=== PATIENT | male | born 1985 | race Caucasian/White ===

== ENCOUNTER 2025-01-12 11:42 | Emergency (ER) | payer BC, SELFPAY ==
[2025-01-12 11:52] VITALS: BP 132/89; PULSE 93; RESP 16; TEMP 37; O2SAT 98
--- NOTE | 2025-01-12 12:14 | ED.EXTPRO ---
HPI - Extremity Problem General Chief complaint: Extremity Injury, Upper Stated complaint: Left Arm Swelling Time Seen by Provider: 01/12/25 12:00 Source: patient and RN notes reviewed Mode of arrival: ambulatory Limitations: no limitations History of Present Illness HPI Narrative: 39-year-old male presents [facility] complaining of lump in his left upper arm and bruising. Patient denies any apparent injury. Patient reports feeling a lump to the left medial distal part of his biceps approximately 4-5 days ago. Patient also noticed bruising that started approximately 4 days ago. Patient said the bruising has improved and that illness slight discoloration to his left arm. Patient denies any numbness swelling, deformity, or tingling. Patient denies hearing a pop. Denies any problems moving his left elbow. Related Data Allergies Allergy/AdvReac Type Severity Reaction Status Date / Time No Known Allergies Allergy Verified 01/12/25 12:04 Review of Systems Review of Systems: CONSTITUTIONAL: Denies fever, chills, or sweats. EYES: Denies visual changes, redness, or discharge. ENT: Denies rhinorrhea, congestion, sore throat, or otalgia. CARDIOVASCULAR: Denies chest pain, palpitations, or edema. RESPIRATORY: Denies cough or dyspnea. GASTROINTESTINAL: Denies abdominal pain, nausea, vomiting, or diarrhea. GENITOURINARY: Denies dysuria or hematuria. SKIN: Denies rash, wound, or itching. Positive for left arm mass and bruising. MUSCULOSKELETAL: Denies back pain, joint pain, or myalgia. NEUROLOGIC: Denies headache, numbness, or weakness. PSYCHIATRIC: Denies anxiety or depression. All other systems reviewed are negative, except as documented in HPI. [facility] Surgical History Surgical History H/O wisdom tooth extraction Family History Family History Mother CHF (congestive heart failure) Father Hypertension Social History Social History Smoking status: Never smoker Lack of Transportation: No Lack of Food: Never True Current Housing: I Have Housing Concerned About Future Housing: No Difficulty Paying Gas/Electric Bills: No Difficulty Paying for Meds: No Currently Unemployed: No Education: Trade/Vocational Certificate Difficulty w/ Childcare or Family Care: No Comments At the time of my signature, I reviewed and agree with the nursing past medical, surgical, social, and family history. There is no relevant family history pertinent to the patient complaint. Exam Narrative: GENERAL: This is a well-nourished, well-developed adult, in no apparent distress. They are non ill-appearing, nontoxic appearing. HEAD: normocephalic, atraumatic. EYES: Sclera clear/white. Vision is grossly intact. Conjunctiva normal. Extraocular movement intact. EARS: External ears normal Hearing grossly intact. NOSE: External nose normal THROAT: Mucous membranes moist NECK: Neck supple CARDIOVASCULAR: Regular rate and rhythm RESPIRATORY: Respiratory rate normal, respiratory effort nonlabored, no respiratory distress NEURO: awake, alert, and oriented to person, place and time. There were no obvious focal neurologic abnormalities. EXTREMITIES: Left upper arm: No obvious deformity, injury, swelling,, redness. No Evidence of tendon rupture. Normal flexion extension of biceps. There is a palpable subcutaneous soft tissue mass below the skin lateral distal upper arm. Mass feel soft, mobile, nodular, nontender. No redness, swelling, area of fluctuance, or induration. Right double nontender with through full range of motion. No bony tenderness. There is old bruising that is yellow in color extending from mid lateral upper arm to mid lateral forearm. Capillary refill less than 3 seconds. The left radial Pulse 2 +palpable. Normal sensation. Neurovascular status intact distal to mass. BACK: Nontender without deformity. Course Course Emergency Course: Portions of this record may have been created with voice recognition software Level of Care: Express Care Visit Vital Signs Vital signs: Vital Signs Temperature 98.6 F 01/12/25 11:52 Pulse Rate 93 01/12/25 11:52 Respiratory Rate 16 01/12/25 11:52 Blood Pressure 132/89 01/12/25 11:52 Pulse Oximetry 98 01/12/25 11:52 Oxygen Delivery Room Air 01/12/25 11:52 Temperature 98.6 F 01/12/25 11:52 Pulse Rate 93 01/12/25 11:52 Respiratory Rate 16 01/12/25 11:52 Blood Pressure 132/89 01/12/25 11:52 Pulse Oximetry 98 01/12/25 11:52 Oxygen Delivery Room Air 01/12/25 11:52 Reviewed MDM - Extremity (Nontraumatic) MDM Narrative Medical decision making narrative: Likely soft tissue mass bruising appears to relate lateral to manipulating the skin. Bruise in his old and is almost healed. Patient denies any apparent injury, swelling, or pain, therefore no x-rays indicated. Well score of 0. Advised close follow-up with PCP for further evaluation management. Discussed physical exam findings. Advised supportive measures and signs/symptoms to go to the ER. Pt is appropriate for outpt treatment and f/u. Differential Diagnosis Differential diagnosis: Likely deep venous thrombosis of upper extremity and other (lipoma, cyst) Critical Care Time Critical Care Time Critical Care Time: No Discharge Plan Discharge Clinical Impression: Mass of soft tissue of left upper extremity Patient Disposition: Home Condition: Stable Instructions: Cyst (ED), Soft Tissue Mass (ED) Additional Instructions: Follow-up with your primary care provider in 3-5 days for further evaluation of the mass in your left arm. You may take Tylenol or ibuprofen as needed for pain. If you developed any worsening arm swelling, severe arm pain, fevers, or any other concerns please go to the ER immediately. Patient Language: Citizen Of [place] Prescriptions: No Action lisinopril-hydrochlorothiazide 20-12.5 mg tablet 2 tablet PO DAILY Qty: 180 3RF tadalafil [Cialis] 5 mg tablet 5 mg PO DAILY Qty: 30 5RF Follow-up/Referrals: Byron Vo MD [Primary Care Provider] - Time of Disposition: 12:09
== END 2025-01-12 12:10 | disposition home or self-care (01) ==
PROVIDERS: PCP Family Medicine Adolescent Medicine
DX: R22.32 Localized swelling, mass and lump, left upper limb (principal)
CPT/HCPCS: 99211; G0463

== ENCOUNTER 2025-05-16 11:01 | Emergency (ER) | payer BC, SELFPAY ==
[2025-05-16 11:05] VITALS: BP 150/89; PULSE 90; RESP 20; TEMP 36.6; O2SAT 100
--- NOTE | 2025-05-17 08:21 | ED.SKABFB ---
HPI - Skin/Abscess/Foreign Bdy General Chief complaint: Skin/Abscess/Foreign Body Stated complaint: Rash Time Seen by Provider: 05/16/25 12:10 Source: patient and RN notes reviewed Mode of arrival: ambulatory Limitations: no limitations History of Present Illness HPI narrative: 39-year-old male patient presents to the [facility] complaining of rash on his right thigh and waist. Patient believes he has ring worm. Patient has been using [id number] clotrimazole cream for the last week this is a rashes persist however he is ran out gave you for further evaluation. Patient reports Pru test but no pain, patient denies any redness, swelling, drainage, fevers, body aches, chills or any other symptoms. Related Data Allergies Allergy/AdvReac Type Severity Reaction Status Date / Time No Known Allergies Allergy Verified 05/16/25 11:07 Review of Systems Review of Systems: CONSTITUTIONAL: Denies fever, chills, or sweats. EYES: Denies visual changes, redness, or discharge. ENT: Denies rhinorrhea, congestion, sore throat, or otalgia. CARDIOVASCULAR: Denies chest pain, palpitations, or edema. RESPIRATORY: Denies cough or dyspnea. GASTROINTESTINAL: Denies abdominal pain, nausea, vomiting, or diarrhea. GENITOURINARY: Denies dysuria or hematuria. SKIN: Positive for rash or itching. MUSCULOSKELETAL: Denies back pain, joint pain, or myalgia. NEUROLOGIC: Denies headache, numbness, or weakness. PSYCHIATRIC: Denies anxiety or depression. All other systems reviewed are negative, except as documented in HPI. [facility] Surgical History Surgical History H/O wisdom tooth extraction Family History Family History Mother CHF (congestive heart failure) Father Hypertension Social History Social History Smoking status: Never smoker Lack of Transportation: No Lack of Food: Never True Current Housing: I Have Housing Concerned About Future Housing: No Difficulty Paying Gas/Electric Bills: No Difficulty Paying for Meds: No Currently Unemployed: No Education: Trade/Vocational Certificate Difficulty w/ Childcare or Family Care: No Comments At the time of my signature, I reviewed and agree with the nursing past medical, surgical, social, and family history. There is no relevant family history pertinent to the patient complaint. Exam Narrative: GENERAL: This is a well-nourished, well-developed adult, in no apparent distress. They are non ill-appearing, nontoxic appearing. HEAD: normocephalic, atraumatic. EYES: Sclera clear/white. Conjunctiva normal. Vision is grossly intact. Extraocular movements intact EARS: External ears normal. Hearing grossly intact. NOSE: External nose normal THROAT: Mucous membranes moist, NECK: Neck supple, CARDIOVASCULAR: Regular rate and rhythm RESPIRATORY: Respiratory rate normal, respiratory effort nonlabored, no respiratory distress SKIN: There is erythematous scaly patches that are annular shaped with raised border with central clearing to the patient's right anterior proximal thigh and scattered throughout the patient's waistline. No surrounding erythema, swelling, exudate, no area of fluctuance or induration. Nontender to palpate. It is pruritic. NEURO: awake, alert, and oriented to person, place and time. There were no obvious focal neurologic abnormalities. EXTREMITIES: No joint tenderness, effusion, or edema noted. Course Course Emergency Course: Portions of this record may have been created with voice recognition software Level of Care: Express Care Visit Vital Signs Vital signs: Vital Signs Temperature 97.9 F 05/16/25 11:05 Pulse Rate 90 05/16/25 11:05 Respiratory Rate 20 05/16/25 11:05 Blood Pressure 150/89 H 05/16/25 11:05 Pulse Oximetry 100 05/16/25 11:05 Oxygen Delivery Room Air 05/16/25 11:05 Temperature 97.9 F 05/16/25 11:05 Pulse Rate 90 05/16/25 11:05 Respiratory Rate 20 05/16/25 11:05 Blood Pressure 150/89 H 05/16/25 11:05 Pulse Oximetry 100 05/16/25 11:05 Oxygen Delivery Room Air 05/16/25 11:05 Reviewed MDM - Skin/Abscess/Foreign Bdy MDM Narrative Medical decision making narrative: Peers patient's symptoms are consistent with tinea corporis, patient still has been using clotrimazole for 1 week. Prescription of clotrimazole sent to pharmacy. For patient may take 3 weeks for ring were to resolve to be compliant with treatment apply liberally to the affected area for the next 3 weeks. Discussed physical exam findings. Advised supportive measures and signs/symptoms to go to the ER. Pt is appropriate for outpt treatment and f/u. Differential Diagnosis Differential diagnosis: Likely abscess of skin or subcutaneous tissue, dermatophytosis, cellulitis and contact dermatitis Critical Care Time Critical Care Time Critical Care Time: No Discharge Plan Discharge Clinical Impression: Ringworm Patient Disposition: Home Condition: Stable Instructions: Antibiotic Form, Skin Yeast Infection (ED) Additional Instructions: Use clotrimazole cream as directed. Apply it topically twice a day affected areas. It may take up to 3 weeks for ring were not fully resolved. Avoid scratching or picking at the lesions and as it may spread elsewhere. You may use Zyrtec or Claritin as needed for itchiness symptoms. You may also do calamine lotion or can further help with itchiness. Keep the area dry, wash the area with mild soap and water. Follow-up with PCP in 1 week. Go to the ER for any worsening redness, swelling or pain, fevers, full-body rash or any serious concerns. Patient Language: [place]ian Prescriptions: New clotrimazole 1 % cream 1 applic topical BID 28 Days Qty: 45 1RF No Action lisinopril-hydrochlorothiazide 20-12.5 mg tablet 2 tablet PO DAILY Qty: 180 3RF tadalafil [Cialis] 5 mg tablet 5 mg PO DAILY Qty: 30 5RF Follow-up/Referrals: Byron Vo MD [Primary Care Provider, [facility]] Time of Disposition: 12:23
== END 2025-05-16 12:28 | disposition home or self-care (01) ==
PROVIDERS: PCP Family Medicine Adolescent Medicine
DX: B35.4 Tinea corporis (principal)
CPT/HCPCS: 99213; G0463